=== PATIENT | female | born 1995 | race Caucasian/White ===

== ENCOUNTER 2023-01-24 11:08 | Emergency (ER) | payer MEDICAID ==
[~2023-01-24] VITALS: Ht 170.2 cm; Wt 100.0 kg
[2023-01-24] MEDS ORDERED: KETOROLAC 60MG/2ML VIAL IM STA (12:20)
[2023-01-24 14:00] VITALS: BP 142/97
[2023-01-24] MEDS ORDERED: KETOROLAC 60MG/2ML VIAL IM NR (14:00)
[2023-01-24 14:18] LABS: CLARITY URINE CLEAR (CLEAR); COLOR URINE YELLOW (YELLOW); KETONES URINE NEGATIVE (NEGATIVE); LEUKOCYTE ESTERASE URINE 1+ (NEGATIVE); NITRITE URINE NEGATIVE (NEGATIVE); OCCULT BLOOD URINE 3+ (NEGATIVE); PH URINE 5.5 (4.5-8.0); PROTEIN URINE NEGATIVE (NEGATIVE); SPECIFIC GRAVITY URINE 1.011 (1.005-1.030); UROBILINOGEN URINE 0.2 E.U./dL (0.2-1.0)
[2023-01-24] MEDS ORDERED: NAPR-681 PO (15:30)
[2023-01-24] MEDS ORDERED: CYCL5TAB PO (15:30)
== END 2023-01-24 17:19 | disposition home or self-care (01) ==
LOC: ER 11:08
DX: M54.9 Dorsalgia, unspecified (principal)
CPT/HCPCS: 71046; 81003; 81025; 96372; 99284; J1885

== ENCOUNTER 2023-01-30 13:59 | Emergency (ER) | payer MEDICAID ==
[~2023-01-30] VITALS: Ht 182.9 cm; Wt 93.0 kg
[~2023-01-30 13:59] MED LIST: CYCL5TAB PO; NAPR-681 PO
[2023-01-30] MEDS ORDERED: KETOROLAC 60MG/2ML VIAL IM STA (18:37)
[2023-01-30] MEDS ORDERED: ACETAMINOPHEN 325MG TABLET PO STA (18:37)
[2023-01-30 19:24] LABS: BASOPHILS % 0.3 % (0.0-2.0); CHLORIDE 104 mEq/L (98-107); EOSINOPHILS % 0.7 % (0.0-5.0); HEMATOCRIT. 34.7 % (36.0-48.0); HEMOGLOBIN. 11.3 g/dL (12.0-16.0); LYMPHOCYTES % 17.6 % (20.0-50.0); MEAN CORPUSCULAR HEMOGLOBIN 26.8 pg (28.0-32.0); MEAN PLATELET VOLUME 8.4 fl (7.4-10.4); MONOCYTES % 9.4 % (2.0-8.0); PLATELET 287 x1000/uL (130-400); RED BLOOD CELL COUNT 4.23 mill/uL (4.2-5.4); RED CELL DISTRIBUTION WIDTH 14.2 % (11.6-14.6)
[2023-01-30 19:25] LABS: PROTHROMBIN TIME 11.1 sec (9.6-11.0)
[2023-01-30 19:30] LABS: HCG SCREEN NEGATIVE
[2023-01-30 20:04] LABS: CLARITY URINE CLOUDY (CLEAR); COLOR URINE YELLOW (YELLOW); KETONES URINE NEGATIVE (NEGATIVE); LEUKOCYTE ESTERASE URINE 3+ (NEGATIVE); NITRITE URINE NEGATIVE (NEGATIVE); OCCULT BLOOD URINE 1+ (NEGATIVE); PH URINE 5.5 (4.5-8.0); PROTEIN URINE 2+ (NEGATIVE); SPECIFIC GRAVITY URINE 1.009 (1.005-1.030); UROBILINOGEN URINE 0.2 E.U./dL (0.2-1.0)
[2023-01-30] MEDS ORDERED: FLUCONAZOLE 100MG TABLET PO NR (21:00)
[2023-01-30] MEDS ORDERED: CEFTRIAXONE 1GM PREMIX 50 ML IV NR (21:00)
[2023-01-30] MEDS ORDERED: SODIUM CHLORIDE 0.9% 1,000 ML IV ONE (21:00)
[2023-01-30] MEDS ORDERED: SODIUM CHLORIDE 0.9% 1,000 ML IV NR (21:00)
[2023-01-30 23:54] VITALS: O2SAT 99
[2023-01-31 00:35] VITALS: BP 118/71; PULSE 75; RESP 16; TEMP 96.3
== END 2023-01-31 01:13 | disposition short-term general hospital (02) ==
LOC: ER 14:19
DX: N19 Unspecified kidney failure (principal); N12 Tubulo-interstitial nephritis, not specified as acute or chronic
CPT/HCPCS: 36415; 74176; 76770; 80053; 81003; 83690; 84703; 85025; 85610; 87040; 96365; 96372; 99285; J0696; J1885